=== PATIENT | male | born 1960 | race Caucasian/White ===

== ENCOUNTER 2024-12-31 15:02 | Outpatient (AMB) | payer OTHER, SELFPAY ==
--- NOTE | 2024-12-31 15:25 | MHC.OFFVIS ---
Intake Visit Reasons: Neuropathy Allergies No Known Allergies Allergy (Verified 12/29/24 15:57) HPI Comments Details: The patient is a 64-year-old male presenting with sensory disturbances in his toes and feet, which he describes as uncomfortable and feeling close together, present for more than 10 years. He began experiencing tingling and burning sensations approximately 18 months ago, initially limited to nighttime occurrences, then progressing to activities such as driving and sitting at a desk, and now present constantly. Notably, the patient has a history of insomnia since his late 30s, which has been managed variably without long-term success except with Ambien. He is also diagnosed with PTSD, managed with venlafaxine, but has continued issues with sleep quality. He denies diabetes and has a moderate consumption of beer. His medical history includes osteoarthritis, affecting both his knees and hands, with recent surgery for arthritis on his left hand. Sensations in the feet have not been significantly alleviated by gabapentin, warranting further exploration of differential diagnoses. [facility] Medical History (Updated 12/31/24 @ 15:32 by Skyler Andrade MD) Dehydration Orthostatic hypotension Fatigue Headache Acute upper respiratory infection Insomnia Generalized anxiety disorder Mixed hyperlipidemia Other seborrheic keratosis Osteoarthritis of knee Surgical History (Updated 12/29/24 @ 15:32 by NATHAN Awad) Presence of left artificial shoulder joint Family History (Updated 12/29/24 @ 15:57 by NATHAN Awad) Mother Chronic kidney disease Review of Systems Narrative - Neurologic: Reports tingling and burning in feet and toes; denies dizziness or seizures. - Musculoskeletal: Reports arthritis in knees and hands. - Psychiatric: Reports insomnia and PTSD. Denies hallucinations. - General: Denies fever and weight loss. - Endocrine: Denies diabetes. Physical Exam Neuro Other: Mental Status: Alert and oriented to person, place, and time. Normal attention. Normal spontaneous speech, fluency, and comprehension. No obvious issues with mood and memory. Affect is appropriate. Cranial Nerves: CN II: Visual zayas full to confrontation, visual acuity intact. CN III, IV, : Pupils equal, round, reactive to light and accommodation. Extraocular movements are normal. CN V: Facial sensation is normal. CN VII: Facial movements symmetrical. CN VIII: Hearing intact to bedside conversation is normal. CN IX, X: Palate elevates symmetrically. CN XI: Shoulder shrug and head turn symmetrical. CN XII: Tongue midline without atrophy or fasciculations. Motor: Moderate diffuse muscle atrophy in feet. Reflexes: Deep tendon reflexes 1+ in knees and trace and ankles with flexor plantars. Coordination: [id number] is okay. Gait and Station: No obvious gait abnormality. No ataxia or instability. Sensory: Vibratory sensation diminished in toes. Extrapyramidal: Full facial expressions and blinking. No rigidity. Movements are appropriate with no tremor or abnormality. Speech: Normal; no dysarthria or tremor. Assessment & Plan Assessment & Plan (1) Peripheral neuropathy: Code(s): G62.9 - Polyneuropathy, unspecified Category: Medical Qualifiers: Peripheral neuropathy type: polyneuropathy, unspecified Qualified Code(s): G62.9 - Polyneuropathy, unspecified (2) Neuropathic pain: Code(s): M79.2 - Neuralgia and neuritis, unspecified Category: Medical Plan Impression: Peripheral neuropathy, probably genetic based with neuropathic pain Rec: a: Gabapentin 300mg one at bedtime b: EMG/NCS legs c: Labs d: Comfortable shoes e; Read about neuropathy In our discussion, I emphasized the probable diagnosis of peripheral neuropathy given the symptoms and muscle atrophy observed. I recommended continuing gabapentin at an adjusted bedtime dose to monitor for symptom improvement. Additional diagnostics such as EMG, nerve conduction studies, and specific blood tests will help ascertain underlying causes. Orders: Orders NE nerve conduction velocity Today G62.9 - Polyneuropathy, unspecified NE electromyogram (EMG) Today G62.9 - Polyneuropathy, unspecified Basic Metabolic Panel Today G62.9 - Polyneuropathy, unspecified Immunofixation Pnl, Serum Today G62.9 - Polyneuropathy, unspecified Erythrocyte Sedimentation Rate Today G62.9 - Polyneuropathy, unspecified Vitamin B12 and Folate Today G62.9 - Polyneuropathy, unspecified Lyme IgG/IgM w/reflex to WB Today G62.9 - Polyneuropathy, unspecified Coding Level of Care Code Est Pt Level 4 (21903) Diagnoses Peripheral polyneuropathy G62.9 Peripheral neuropathy type: polyneuropathy, unspecified Neuropathic pain M79.2
== END 2024-12-31 15:44 | disposition home or self-care (01) ==
LOC: HO.HSM 15:03
PROVIDERS: PCP Internal Medicine; Visit Provider Psychiatry & Neurology Neurology
DX: G62.9 Polyneuropathy, unspecified (principal); M79.2 Neuralgia and neuritis, unspecified
CPT/HCPCS: 99214

== ENCOUNTER 2024-12-31 15:02 | Outpatient (REF) | payer OTHER, SELFPAY ==
[2024-12-31 17:01] LABS: Anion Gap 9 (12-20); Blood Urea Nitrogen 15 mg/dL (9-16); Calcium 8.9 mg/dL (8.4-10.2); Carbon Dioxide 29 mmol/L (22-29); Chloride 108 mmol/L (96-108); Estimated Glomerular Filt Rate > 60; Potassium 3.7 mmol/L (3.3-5.1); Sodium 142 mmol/L (135-145)
[2024-12-31 17:28] LABS: Folate 6.6 ng/mL (> or = 4.0); Vitamin B12 540 pg/mL (200-900)
[2025-01-01 05:49] LABS: Lyme Abs Screen <0.90 index
== END 2024-12-31 15:03 | disposition home or self-care (01) ==
LOC: HO.LAB 15:02
PROVIDERS: PCP Internal Medicine; Visit Provider Psychiatry & Neurology Neurology
DX: G62.9 Polyneuropathy, unspecified (principal); Z01.84 Encounter for antibody response examination
CPT/HCPCS: 36415; 80048; 82607; 82746; 82784; 85652; 86334; 86617; 86618

== ENCOUNTER 2025-01-25 14:59 | Outpatient (AMB) | payer OTHER, SELFPAY ==
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
[2025-01-25 15:22] VITALS: BP 128/80; PULSE 78; TEMP 36.8; O2SAT 99; BMI 25.8
== END 2025-01-25 16:08 | disposition home or self-care (01) ==
LOC: HO.HMCH 15:00
PROVIDERS: PCP Internal Medicine; Visit Provider Internal Medicine
DX: Z00.00 Encounter for general adult medical examination without abnormal findings (principal); F32.1 Major depressive disorder, single episode, moderate; G62.9 Polyneuropathy, unspecified; F51.04 Psychophysiologic insomnia; Z23 Encounter for immunization

== ENCOUNTER → 2025-01-25 14:59 | Outpatient (BNVA) | payer OTHER, SELFPAY | PROVIDERS: PCP Internal Medicine; Visit Provider Internal Medicine | DX: Z00.00 Encounter for general adult medical examination without abnormal findings (principal); F32.1 Major depressive disorder, single episode, moderate; F43.10 Post-traumatic stress disorder, unspecified; G62.9 Polyneuropathy, unspecified; F51.04 Psychophysiologic insomnia; Z23 Encounter for immunization; Z79.899 Other long term (current) drug therapy | CPT/HCPCS: 90471; 90472; 90656; 90715; 96127 ==

== ENCOUNTER 2025-01-26 12:40 | Outpatient (REF) | payer OTHER, SELFPAY ==
--- NOTE | 2025-01-26 14:22 | EMG_ITS ---
Chief complaint:?numbness in feet Reason for referral: G62.9 Polyneuropathy Referred by:?Cortney Andrade MD Procedure done: NCS of bilateral lower and right upper extremity and EMG of bilateral lower extremity Bilateral peroneal and tibial motor studies were performed with F responses and tibial H reflexes. Right median and ulnar motor studies were performed. Bilateral superficial peroneal and sural sensory studies were performed, and right median and ulnar mixed, radial sensory and median and lateral antecubital brachial sensory studies were performed. EMG needle examination was performed. Bilateral peroneal motor responses were absent. Right tibial motor response was absent. Left tibial response revealed minimal amplitude with conduction velocity of 31 m/sec. Because of significant findings in lower extremities, right upper extremity was tested. Right median distal motor latencies was mildly prolonged but amplitudes was intact with a normal conduction velocity. Ulnar motor study did not reveal any significant abnormality. In sensory studies, median and lateral mixed plantars sensory studies were absent. Sural and superficial peroneal studies revealed significant reduction of amplitude and moderate slowing. Median mixed distal latencies was moderately prolonged with mildly slow conduction velocity. Needle examination revealed significant reduction of recruitment with long duration polyphasic potentials. No acute potentials were noted. Impression: Severe axonal sensory motor, motor more than sensory, peripheral neuropathy affecting feet and legs more than upper extremities. Codin x2 [id number] [facility]
== END 2025-01-26 12:41 | disposition home or self-care (01) ==
LOC: HO.NEURO 12:40
PROVIDERS: PCP Internal Medicine; Visit Provider Psychiatry & Neurology Neurology
DX: R20.0 Anesthesia of skin (principal); G62.9 Polyneuropathy, unspecified
CPT/HCPCS: 95886; 95913

== ENCOUNTER → 2025-01-26 14:22 | Outpatient (BNV) | payer OTHER, SELFPAY | PROVIDERS: PCP Internal Medicine; Visit Provider Psychiatry & Neurology Neurology | DX: G62.89 Other specified polyneuropathies (principal) | CPT/HCPCS: 95886; 95913 ==

== ENCOUNTER 2025-01-28 08:05 | Outpatient (AMB) | payer OTHER, SELFPAY ==
--- NOTE | 2025-01-28 08:17 | MHC.OFFVIS ---
Intake Visit Reasons: Results Allergies erythromycin base Allergy (Mild, Verified 01/25/25 15:28) Chest Pain HPI Comments Details: The patient is a 64-year-old male presenting with sensory disturbances in his toes and feet, which he describes as uncomfortable and feeling close together, present for more than 10 years. He began experiencing tingling and burning sensations approximately 18 months ago, initially limited to nighttime occurrences, then progressing to activities such as driving and sitting at a desk, and now present constantly. He is presenting for evaluation of a chronic neuropathy characterized by significant muscle wasting. The muscle wasting is most prominent in the feet, to a lesser extent in the legs, and not significantly in the arms. The neuropathy is an axonal type and presents atypically, with motor nerves more affected than sensory nerves. The most common causes of neuropathy, such as diabetes and excessive alcohol use, have been ruled out. The patient reports being active and performing leg exercises at the gym. There is a family history of a degenerative kidney disease in the patient's mother, who at age 53, with a suspected but unconfirmed autoimmune etiology. [facility] Medical History Dehydration Orthostatic hypotension Fatigue Headache Acute upper respiratory infection Insomnia Generalized anxiety disorder Mixed hyperlipidemia Other seborrheic keratosis Osteoarthritis of knee Surgical History Presence of left artificial shoulder joint Family History Mother Chronic kidney disease Social History Housing: House Patient Tobacco Use Status: Never used Tobacco Tobacco use type: Cigarette e-Cigarette/Vaping Use: Never Used Second Hand Smoke Exposure: No service: No Current occupational status: employed Current occupational exposures/hazards: No Cognitive needs: No Hearing needs: No Vision needs: No Physical Exam Neuro Other: Mental Status: Alert and oriented to person, place, and time. Normal attention. Normal spontaneous speech, fluency, and comprehension. No obvious issues with mood and memory. Affect is appropriate. Cranial Nerves: CN II: Visual zayas full to confrontation, visual acuity intact. CN III, IV, : Pupils equal, round, reactive to light and accommodation. Extraocular movements are normal. CN V: Facial sensation is normal. CN VII: Facial movements symmetrical. CN VIII: Hearing intact to bedside conversation is normal. CN IX, X: Palate elevates symmetrically. CN XI: Shoulder shrug and head turn symmetrical. CN XII: Tongue midline without atrophy or fasciculations. Extrapyramidal: Full facial expressions and blinking. No rigidity. Movements are appropriate with no tremor or abnormality. Speech: Normal; no dysarthria or tremor. Results Reviewed Results Reviewed: Laboratory Tests 12/31/24 16:02 ESR 2 Random Glucose 72 Vitamin B12 540 Folate 6.6 Lyme Screen IgG & IgM <0.90 Assessment & Plan Assessment & Plan (1) Peripheral neuropathy: Comment: [place] [facility] [place]: Severe axonal SM PN Code(s): G62.9 - Polyneuropathy, unspecified Category: Medical Qualifiers: Peripheral neuropathy type: polyneuropathy, unspecified Qualified Code(s): G62.9 - Polyneuropathy, unspecified (2) Neuropathic pain: Code(s): M79.2 - Neuralgia and neuritis, unspecified Category: Medical Plan Impression: 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 The differential diagnosis is between a treatable inflammatory neuropathy and a non-treatable genetic neuropathy, as common causes like diabetes and alcohol have been ruled out. The patient's clinical function is better than study results would suggest, which raises suspicion for a treatable inflammatory process. The plan is to pursue further diagnostic workup to rule out a treatable inflammatory cause. This includes ordering further blood tests, a 24-hour urine collection for a heavy metal screen, and a lumbar puncture to analyze the cerebrospinal fluid for elevated protein levels, which would indicate inflammation. If the workup is negative, the diagnosis will likely be a genetic neuropathy. The patient is advised to remain active to maintain muscle function, with specific exercises such as standing on toes and heels recommended. The potential use of an ankle foot orthosis (AFO) was discussed if the patient begins to experience toe stubbing from drop foot. A follow-up will be scheduled to review all test results. Orders: Orders CSF Glucose Today G62.9 - Polyneuropathy, unspecified Protein Electrophoresis, CSF Today G62.9 - Polyneuropathy, unspecified Oligoclonal Banding Today G62.9 - Polyneuropathy, unspecified CSF Culture + Gram stain Today G62.9 - Polyneuropathy, unspecified HIV Ab/Ag Today G62.9 - Polyneuropathy, unspecified FL guided lumbar puncture LP Today G62.9 - Polyneuropathy, unspecified CSF Total Protein Today G62.9 - Polyneuropathy, unspecified CSF Cell Count w Diff Today G62.9 - Polyneuropathy, unspecified Syphilis Screen Today G62.9 - Polyneuropathy, unspecified Heavy Metals Screen 24H Urine Today G62.9 - Polyneuropathy, unspecified Coding Level of Care Code Est Pt Level 5 (75722) Diagnoses Peripheral polyneuropathy G62.9 Peripheral neuropathy type: polyneuropathy, unspecified Neuropathic pain M79.2 Time Spent (min) 45
== END 2025-01-28 08:49 | disposition home or self-care (01) ==
LOC: HO.HSM 08:06
PROVIDERS: PCP Internal Medicine; Visit Provider Psychiatry & Neurology Neurology
DX: G62.9 Polyneuropathy, unspecified (principal); M79.2 Neuralgia and neuritis, unspecified
CPT/HCPCS: 99215

== ENCOUNTER 2025-01-28 08:05 | Outpatient (REF) | payer OTHER, SELFPAY ==
[2025-01-28 10:32] LABS: Hematocrit 42.8 % (42.0-52.0); Hemoglobin 14.1 g/dl (14.0-18.0); Mean Corpuscular HGB Conc 32.9 g/dl (31.0-36.0); Mean Corpuscular Hemoglobin 30.2 pg (27.0-33.0); Mean Corpuscular Volume 91.6 fL (80.0-98.0); NRBC Abs Auto 0.000 X10*3/uL (0.0-0.012); NRBC Pct Auto 0.0 /100WBC (0.0-0.2); Platelet Count 332 X10*3/uL (160-400); Red Blood Count 4.67 X10*6/uL (4.60-5.80); White Blood Count 5.9 X10*3/uL (4.8-10.8)
[2025-01-28 11:18] LABS: Alanine Aminotransferase 31 U/L (0-40); Albumin Level 4.4 g/dL (3.5-5.0); Alkaline Phosphatase 62 U/L (39-117); Anion Gap 11 (12-20); Aspartate Amino Transferase 34 U/L (5-37); Blood Urea Nitrogen 18 mg/dL (9-16); Calcium 8.9 mg/dL (8.4-10.2); Carbon Dioxide 27 mmol/L (22-29); Chloride 106 mmol/L (96-108); Cholesterol 235 mg/dL (<200); Estimated Glomerular Filt Rate > 60; HDL Cholesterol 65 mg/dL (>40); Potassium 4.3 mmol/L (3.3-5.1); Sodium 140 mmol/L (135-145); Total Protein 6.6 g/dL (6.5-8.0); Triglycerides 84 mg/dL (<150)
[2025-01-28 11:30] LABS: HIV Num 1 0.05 S/CO (0.00-0.99)
[2025-01-28 11:31] LABS: HIV Num 1 0.05 S/CO (0.00-0.99); ~HepC Num1 0.08 S/CO (0.00-0.79); ~Hepatitis C Antibody Nonreactive (Nonreactive)
[2025-01-28 11:38] LABS: Syphilis Screen Nonreactive (Nonreactive)
[2025-01-28 11:51] LABS: Folate 5.5 ng/mL (> or = 4.0); Prostate Specific Antigen 3.75 ng/mL (<0.05-4.0); Vitamin B12 340 pg/mL (200-900)
== END 2025-01-28 08:06 | disposition home or self-care (01) ==
LOC: HO.LAB 08:05
PROVIDERS: PCP Internal Medicine; Visit Provider Psychiatry & Neurology Neurology
DX: G62.9 Polyneuropathy, unspecified (principal); D64.9 Anemia, unspecified; Z12.5 Encounter for screening for malignant neoplasm of prostate; Z00.00 Encounter for general adult medical examination without abnormal findings; Z13.6 Encounter for screening for cardiovascular disorders; Z13.21 Encounter for screening for nutritional disorder; Z13.1 Encounter for screening for diabetes mellitus; Z11.4 Encounter for screening for human immunodeficiency virus [HIV]; Z11.59 Encounter for screening for other viral diseases; Z01.84 Encounter for antibody response examination
CPT/HCPCS: 36415; 80053; 80061; 82306; 82607; 82746; 83036; 84153; 84443; 85027; 86780; 86803; 87389

== ENCOUNTER 2025-02-09 09:41 | Outpatient (REF) | payer OTHER, SELFPAY | END 2025-02-09 09:42 | disposition home or self-care (01) | LOC: HO.LNP 09:41 | PROVIDERS: Visit Provider Psychiatry & Neurology Neurology | DX: G62.9 Polyneuropathy, unspecified (principal) | CPT/HCPCS: 82175; 82300; 83655; 83825 ==

== ENCOUNTER 2025-02-22 08:26 | Outpatient (AMB) | payer OTHER, SELFPAY ==
--- NOTE | 2025-02-22 08:30 | MHC.PC.OV ---
Vital Signs 02/22/25 08:31 Height 6 ft 1 in Weight 191 lb 6 oz BMI 25.2 BP 110/62 Blood Pressure Location Lt brachial Position Sitting Pulse 76 Pulse Source Pulse Oximeter Temp 97.1 F Temp Source Temporal Artery Scan Pulse Oximetry (%) 98 Oxygen Delivery Method Room Air Intake Visit Reasons: 1 month follow up Intake Note: Patient is here to follow up on Neuropathy, Insomina. 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 Accompanied by: Self / Same As Patient Allergies erythromycin base Allergy (Mild, Verified 02/22/25 08:31) Chest Pain Medication List - Last Reconciled 02/22/25 by Maria Teresa Lay MD atorvastatin (Lipitor) 40 mg PO DAILY meloxicam 15 mg PO DAILY venlafaxine 75 mg PO BID Tobacco use date assessed: 02/22/25 Fall risk assessment: 2 + Falls in past year Last assessed Fall Risk: 02/22/25 Dental Screening Dental Screen Date: 01/25/25 HPI HPI Comments History of Present Illness Details The patient is a 64-year-old male with PMH of REHAN, insomnia, neuropathy presenting for follow-up for insomnia and anxiety and new episodes of fainting. The patient reports difficulty sleeping, which is exacerbated by anxiety and racing thoughts about his life when he lies down. He has been using Ambien (zolpidem), which helped him in the past. However, he felt that the medication has not been helping him much recently. He tried Trazadone, THC gummies, Antihistamine, Melatonin in the past which provided minimal help. He is aware of the side effects of Ambien and that it was prescribed for short use only. He reports approximately five fainting episodes since his last visit, with the first occurring shortly after the previous appointment and the most recent one last Saturday. These episodes are often preceded by prodromal symptoms. They have been occuring with positional changes, such as getting up from a sitting or sleeping position, and once while moving quickly from a seated position. During one event, he lost consciousness and awoke on the floor. He has a history of a similar fainting episode almost 30 years ago. The patient has been seeing a neurologist for neuropathy and he is currently undergoing CSF W-U to rule out inflamatory causes of Neuropathy. The patient's Venlafaxine dose was increased to 75 mg BID recently. His total cholesterol is 235 mg/dL and his LDL is 154 mg/dL. He notes his cholesterol has been in that range for years, though this reading is higher than it has been. He did not start the previously prescribed Lipitor because he was unsure if the non-fasting lab draw was accurate, but he is now willing to take it. He exercises about three times a week, usually in the morning, and has active weekends. [facility] Medical History (Updated 02/22/25 @ 10:43 by Maria Teresa Lay MD) Dehydration Orthostatic hypotension Fatigue Headache Acute upper respiratory infection Insomnia Generalized anxiety disorder Mixed hyperlipidemia Other seborrheic keratosis Osteoarthritis of knee Surgical History Presence of left artificial shoulder joint Family History (Updated 02/22/25 @ 08:30 by NATHAN Trimble) Mother Chronic kidney disease Social History (Updated 02/22/25 @ 08:31 by NATHAN Trimble) Housing: House Alcohol intake: never Patient Tobacco Use Status: Never used Tobacco Tobacco use type: Cigarette e-Cigarette/Vaping Use: Never Used Second Hand Smoke Exposure: No service: No Current occupational status: employed Current occupational exposures/hazards: No Cognitive needs: No Hearing needs: No Vision needs: No Questionnaire Thrive Questionnaire Date Thrive assessed: 01/25/25 I am a: Patient What is your living situation today?: I have a steady place to live Within the past 12 months, did the food you bought not last and you didn't have the money to get more?: Never true Within the past 12 months, did you worry whether your food would run out before you got money to buy more?: Never true Do you have trouble paying for medicines?: No Do you have trouble getting transportation to medical appointments?: No Do you have trouble paying your heating and electricity bill?: No Do you have trouble taking care of your child, family member or friend?: No Do you have trouble with day-to-day activities such as bathing, preparing meals, shopping, managing finances, etc.?: No Are you currently unemployed and looking for a job?: No Are you interested in more education?: No Please select the resources that you would like help with: None Currently or been in a relationship where the following occur: No concerns reported THRIVE Score: 0 REHAN-7 AMB Questionnaire REHAN-7 Date REHAN - 7 assessed: 01/25/25 Source: Developed by Drs. Sp Morales, Maritza Kevin, Elvis Ramos and colleagues, with an educational nikhil from [employer]. Review of Systems Const Details: As per HPI. Physical exam (Primary Care) Vital Signs: Last Vital Signs Temp 97.1 F 02/22/25 08:31 Pulse 76 02/22/25 08:31 BP 110/62 02/22/25 08:31 Pulse Ox 98 02/22/25 08:31 Oxygen Delivery Method Room Air 02/22/25 08:31 BMI result Body Mass Index 25.2 Tobacco/Smoking Status: Tobacco use Status Tobacco use date assessed 02/22/25 02/22/25 08:38 Patient Tobacco Use Status Never used Tobacco 02/22/25 08:38 Tobacco use type Cigarette 02/22/25 08:38 e-Cigarette/Vaping Use Never Used 02/22/25 08:38 Thrive Assessment: Date of Thrive Assessment Date Thrive assessed 01/25/25 02/22/25 08:38 Currently or been in a relationship where the following occur: No concerns reported Const Other: Pertinent findings are in BOLD GENERAL APPEARANCE NAD, activity normal for age, well developed/ well nourished, no cyanosis, pallor, or diaphoresis. EYES lids/conjunctiva normal. EARS/NOSE/THROAT Mucous membranes moist, nares normal, lips/teeth normal uvula midline without oral pharyngeal erythema, exudate or swelling TMs normal bilaterally. No lymphangitis/lymphedema. HEAD/NECK normocephalic atraumatic, no facial trauma, neck is supple. RESPIRATORY respiratory effort normal, speaks in full sentences, no tripod position, no accessory muscle use. Lungs clear to auscultation without rhonchi, wheezes, rales CARDIAC Regular rate and rhythm, no edema. ABDOMINAL Soft, ND/NT. No evidence of fluid wave. No pulsatile masses on exam, rebound tenderness, Locke sign or pain over Mcburney's point. MUSCLES/EXTREMITIES No abnormal range of motion, no swelling. SKIN Warm, pink and dry. No rashes, dermatoses, petechiae or lesions. NEUROLOGICAL Speech is clear and appropriate. Normal level of consciousness. Gait and coordination are normal. 5/5 strength in all extremities. PSYCH Normal mood and affect. Judgement/competence is appropriate Coding Level of Care Code Est Pt Level 4 (20322) Diagnoses Psychophysiological insomnia F51.04 Insomnia type: psychophysiologic Fainting R55 Generalized anxiety disorder F41.1 HLD (hyperlipidemia) E78.5 Time Spent (min) 30 Assessment & Plan Assessment & Plan (1) Insomnia: Comment: Meds tried: Trazodone, amitryptiline, Code(s): G47.00 - Insomnia, unspecified Category: Medical Qualifiers: Insomnia type: psychophysiologic Qualified Code(s): F51.04 - Psychophysiologic insomnia Plan: - The patient's insomnia is considered secondary to anxiety, and addressing the underlying anxiety is the primary goal. - A referral to a psychiatrist is advised for medication management, with potential options including Mirtazaqpine. - The patient will be encouraged to discuss his sleep issues with his neurologist. - Discontinuation of long-term zolpidem (Ambien) is recommended due to its side effects and addictive potential. - Hydroxyzine will be prescribed as a backup or transitional sleep aid. - Sleep hygiene improvements were recommended, including exercising in the afternoon, avoiding evening food/drink intake, and practicing mind-distraction techniques. (2) Fainting: Code(s): R55 - Syncope and collapse Category: Medical Plan: - The patient has had approximately five episodes of syncope recently, which are thought to be vasovagal in nature. - To rule out a cardiac etiology, a cardiac monitor technician will be prescribed. - Zolpidem (Ambien) is also considered a potential contributing factor to these episodes. Ambien was stopped. (3) Generalized anxiety disorder: Code(s): F41.1 - Generalized anxiety disorder Category: Medical Plan: - The patient's anxiety is identified as the root cause of his insomnia. - He will continue venlafaxine 75 mg twice daily, with no dose change pending psychiatric evaluation. - I emphasized that a referral to a psychiatrist is the most important next step for management, as they may adjust or change his antidepressant medication. - The patient is encouraged to pursue therapy, work out, engage with friends, and make environmental changes to manage stress. (4) HLD (hyperlipidemia): Code(s): E78.5 - Hyperlipidemia, unspecified Category: Medical Plan: - The patient has elevated cholesterol with a total cholesterol of 235 mg/dL and LDL of 154 mg/dL. - The patient has agreed to start the previously prescribed statin (Lipitor), and he will check with the pharmacy to fill it. Plan I discussed with the patient that his fainting episodes are likely vasovagal events. However, to be cautious, I have ordered a cardiac monitor technician to rule out any heart-related causes. We also reviewed that his use of zolpidem (Ambien) could be contributing to these episodes. I explained that his difficulty sleeping is likely a side effect of his underlying anxiety and that our primary goal should be to manage the anxiety. I strongly recommended that he see a psychiatrist to manage his medications, as they are best equipped to adjust his venlafaxine or switch him to an alternative like mirtazapine, which may also aid his sleep. I advised against the long-term use of Ambien due to its side effects and addictive potential and suggested stopping it. As a temporary measure, I prescribed hydroxyzine. We discussed his elevated cholesterol levels (Total: 235, LDL: 154), and he agreed to start the previously prescribed statin medication. I also emphasized the importance of sleep hygiene and other lifestyle modifications, such as changing his workout time and stress management techniques, to help with his overall well-being. We will follow up in three months to review his progress. Orders: Orders ECG 14 day holter monitor Today R55 - Syncope and collapse Referrals Sleep Medicine Referral F51.04 - Psychophysiologic insomnia Medications: New hydroxyzine HCl 50 mg PO TID PRN 60 tabs 3RF itching
[2025-02-22 08:31] VITALS: BP 110/62; PULSE 76; TEMP 36.2; O2SAT 98; BMI 25.2
== END 2025-02-22 09:17 | disposition home or self-care (01) ==
LOC: HO.HMCH 08:27
PROVIDERS: PCP Internal Medicine; Visit Provider Internal Medicine
DX: F51.04 Psychophysiologic insomnia (principal); R55 Syncope and collapse; F41.1 Generalized anxiety disorder; E78.5 Hyperlipidemia, unspecified

== ENCOUNTER → 2025-03-01 07:50 | Outpatient (REF) | payer OTHER, SELFPAY | LOC: HO.CARD 07:50 | PROVIDERS: PCP Internal Medicine; Visit Provider Internal Medicine | DX: R55 Syncope and collapse (principal) | CPT/HCPCS: 93246 ==

== ENCOUNTER → 2025-03-01 07:56 | Outpatient (BNV) | payer OTHER, SELFPAY | PROVIDERS: PCP Internal Medicine; Visit Provider Internal Medicine | DX: R55 Syncope and collapse (principal) | CPT/HCPCS: 93248 ==

== ENCOUNTER 2025-03-10 09:27 | Day surgery (SDC) | payer OTHER, SELFPAY ==
--- NOTE | ~2025-03-10 | FL_ITS ---
EXAMINATION: XR LUMBAR PUNCTURE CLINICAL INFORMATION: G62.9 - Polyneuropathy, unspecified COMPARISON: None available. TECHNIQUE/FINDINGS: Procedure risks and benefits including bleeding, infection and headache were discussed with the patient and informed consent was obtained. The patient was positioned in the prone position. The back was prepped and draped in usual sterile fashion. Using fluoroscopic guidance and a 22-gauge spinal needle, interlaminar access to the spinal canal at the L2-3 level was obtained. Opening pressure did not appear elevated estimated at 11 cm of water. 8 mL of clear CSF fluid was removed. Closing pressure was not obtained. FLUOROSCOPY TIME: 9 seconds DOSE AREA PRODUCT: 244 uGy-m2 (microgray-meter squared) FL/FL guided lumbar puncture LP IMPRESSION: Urostomy guided lumbar puncture. Electronically signed by: Annette Thomas MD 03/10/2025 04:11 PM [facility] [place]
[2025-03-10 09:42] VITALS: BMI 25.3
[2025-03-10 10:05] VITALS: BP 124/81; PULSE 72; RESP 15; TEMP 37.1; O2SAT 98
[2025-03-10 10:06] LABS: INTERNATIONAL NORM RATIO 0.9 (0.9-1.1); Prothrombin Time 11.2 SEC (11.2-13.5)
[2025-03-10 11:55] VITALS: BP 115/76; PULSE 70; RESP 16; TEMP 36.6; O2SAT 99
[2025-03-10 12:25] VITALS: BP 117/72; PULSE 75; RESP 18; O2SAT 97
[2025-03-10 12:55] VITALS: BP 110/70; PULSE 73; RESP 16; O2SAT 98
[2025-03-10 13:21] LABS: Red Blood Cell CSF 18 MM*3; White Blood Cell CSF 0 MM*3
[2025-03-10 13:25] VITALS: BP 109/74; PULSE 65; RESP 16; O2SAT 97
[2025-03-12 10:38] LABS: Oligoclonal Serum Yes
[2025-03-19 07:40] LABS: Albumin, CSF 66.7; Prealbumin, CSF 3.2
[2025-03-19 07:41] LABS: Beta Globulin, CSF 11.8; Gamma Globulin 7.3
== END 2025-03-10 13:48 | disposition home or self-care (01) ==
PROVIDERS: Radiology Diagnostic Radiology; PCP Internal Medicine; Visit Provider Psychiatry & Neurology Neurology
PROC: 009U3ZZ Drainage of Spinal Canal, Percutaneous Approach (ICD-10-PCS; CPT 62270; principal; 2025-03-10 11:00)
DX: G62.9 Polyneuropathy, unspecified (principal); R83.8 Other abnormal findings in cerebrospinal fluid; E78.2 Mixed hyperlipidemia; F41.1 Generalized anxiety disorder; Z88.1 Allergy status to other antibiotic agents
CPT/HCPCS: 36415; 62328; 82945; 83916; 84157; 84166; 85610; 87015; 87070; 87205; 89051; J2003

== ENCOUNTER → 2025-03-10 10:32 | Outpatient (BNV) | payer OTHER, SELFPAY | PROVIDERS: PCP Internal Medicine; Visit Provider Radiology Diagnostic Radiology | DX: G61.81 Chronic inflammatory demyelinating polyneuritis (principal) | CPT/HCPCS: 62328 ==